=== PATIENT | male | born 1985 | race Caucasian/White ===

== ENCOUNTER 2021-06-10 16:55 | Emergency (ER) | payer SELFPAY ==
[~2021-06-10] VITALS: Ht 175.3 cm; Wt 80.7 kg
[2021-06-10 16:58] VITALS: BP 132/65
--- NOTE | 2021-06-10 21:30 | NUR ---
PATIENT NOT IN WAITING ROOM
--- NOTE | 2021-06-10 22:09 | NUR ---
PATIENT ELOPED WITHOUT BEING SEEN BY
== END 2021-06-10 22:09 | disposition left against medical advice (07) ==
LOC: ER 21:44
DX: Z53.21 Procedure and treatment not carried out due to patient leaving prior to being seen by health care provider (principal)

== ENCOUNTER 2021-06-11 13:29 | Emergency (ER) | payer SELFPAY ==
[~2021-06-11] VITALS: Ht 175.3 cm; Wt 80.7 kg
--- NOTE | 2021-06-11 13:29 | NUR ---
PT [id number] FROM STRE[place], PD CALLED. SLEEPING IN A SIDEWALK. 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 PT IS AAOX3, NOT IN RESPIRATORY DISTRESS, V/S STABLE, KEPT RESTED AND COMFORTABLE. WILL CONTINUE TO MONITOR.
--- NOTE | 2021-06-11 13:36 | NUR ---
PT SEEN AND EXAMINED BY .
[2021-06-11 13:51] LABS: BASOPHILS # (AUTO) 0.1 K/uL (0.0-0.2); BASOPHILS % (AUTO) 0.7 % (0.0-2.0); EOSINOPHILS % (AUTO) 0.8 % (0.0-6.0); HEMATOCRIT 42 % (39-51); HEMOGLOBIN 13.9 g/dL (13.5-17.5); LYMPHOCYTES # (AUTO) 1.3 K/uL (0.8-4.8); LYMPHOCYTES % (AUTO) 14.5 % (20.0-44.0); MEAN CORPUSCULAR HGB CONC 33 g/dl (31.0-36.0); MEAN CORPUSCULAR VOLUME 88 fL (80-96); MONOCYTES # (AUTO) 0.7 K/uL (0.1-1.30); MONOCYTES % (AUTO) 7.1 % (2.0-12.0); NEUTROPHILS # (AUTO) 7.2 K/uL (1.8-8.9); NEUTROPHILS % (AUTO) 76.9 % (43.0-81.0); PLATELET COUNT (AUTO) 272 K/uL (150-450); RED BLOOD CELL COUNT(AUTO) 4.71 MIL/uL (4.5-6.0); WHITE BLOOD COUNT (AUTO) 9.3 K/uL (4.3-11.0)
[2021-06-11 13:53] LABS: CALCIUM, SERUM 9.1 mg/dL (8.5-10.1); CARBON DIOXIDE 29 mmol/L (21-32); CHLORIDE 100 mmol/L (98-107); CREATININE 0.8 mg/dL (0.6-1.3); GLUCOSE 84 mg/dL (74-106); POTASSIUM 3.4 mmol/L (3.5-5.1); SODIUM SERUM 138 mmol/L (136-145); UREA NITROGEN, BLOOD 12 mg/dL (7-18)
[2021-06-11 13:54] LABS: ACETAMINOPHEN < 2 ug/ml (10-30); ALANINE AMINOTRANSFERASE 24 U/L (12-78); ALBUMIN 4.1 g/dL (3.4-5.0); ALCOHOL, BLOOD < 3 mg/dL (0-0); ALKALINE PHOSPHATASE 83 U/L (46-116); ASPARTATE AMINOTRANSFERASE 27 U/L (15-37); BILIRUBIN,DIRECT 0.2 mg/dL (0.0-0.2); BILIRUBIN,TOTAL 0.9 mg/dL (0.2-1.0); TOTAL PROTEIN, SERUM 7.6 g/dL (6.4-8.2)
--- NOTE | 2021-06-11 15:32 | NUR ---
URINE COLLECTED AND SENT TO LAB
[2021-06-11 16:05] LABS: BILIRUBIN,URINE SMALL (NEGATIVE); COLOR,URINE YELLOW (YELLOW); LEUKOCYTE ESTERASE ,URINE NEGATIVE (NEGATIVE); NITRITE, URINE NEGATIVE (NEGATIVE); PROTEIN,URINE NEGATIVE (NEGATIVE); UGLUCOSE NEGATIVE (NEGATIVE); UROBILINOGEN,URINE 0.2 EU/dL (0.2)
[2021-06-11 17:30] VITALS: BP 131/69
--- NOTE | 2021-06-11 17:56 | NUR ---
Patient eloped from facility. ER MD notified.
== END 2021-06-11 17:59 | disposition left against medical advice (07) ==
LOC: ER 13:30
DX: G93.40 Encephalopathy, unspecified (principal); Z60.2 Problems related to living alone
CPT/HCPCS: 36415; 80048-TC; 80076-TC; 85025-TC; G0480

== ENCOUNTER 2021-06-12 07:23 | Emergency (ER) | payer SELFPAY ==
[~2021-06-12] VITALS: Ht 175.3 cm; Wt 78.0 kg
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
--- NOTE | 2021-06-12 09:03 | NUR ---
DR MONTAÑO AT THE BEDSIDE
--- NOTE | 2021-06-12 09:15 | NUR ---
THE PATIENT IS PROVIDED WITH BREAKFAST. TOLERATES WELL.
--- NOTE | 2021-06-12 10:22 | NUR ---
THE PATIENT SLEEPING. EASILY RESPONSIVE TO VERBAL STIMULI. RESPIRATION REGULAR AND UNLABORED. WILL CONTINUE TO MONITOR THE PATIENT.
--- NOTE | 2021-06-12 11:11 | NUR ---
The patient is alert and oriented x4. Denies SOB. In room air and denies SOB. Respiration regular and unlabored. Patient given written and verbal discharge instructions. Patient verbalizes understanding of instructions. Patient is ambulatory with steady gait. Patient given list of available shelters in surrounding area. The patient is discharged from ED in stable condition.
[2021-06-12 11:13] VITALS: BP 126/77
== END 2021-06-12 11:13 | disposition home or self-care (01) ==
LOC: ER 07:34
DX: R10.9 Unspecified abdominal pain (principal); Z60.2 Problems related to living alone

== ENCOUNTER 2021-06-13 22:31 | Emergency (ER) | payer SELFPAY ==
[~2021-06-13] VITALS: Ht 180.3 cm; Wt 80.7 kg
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
[2021-06-13] MEDS ORDERED: LIDOCAINE 1% INJ 50 ML MDV IJ ONE (23:16)
[2021-06-13] MEDS ORDERED: AMOXICILLIN TRIHYDRATE 500 MG CAPSULE PO ONE (23:30)
[2021-06-13] MEDS ORDERED: TDAP [DIPH/PERTUSSIS/TET] 0.5 ML VIAL IM ONE (23:30)
--- NOTE | 2021-06-14 00:42 | NUR ---
ER MD AT BEDSIDE FOR SUTURES
[2021-06-14] MEDS ORDERED: TDAP [DIPH/PERTUSSIS/TET] 0.5 ML VIAL IM ONE (01:34)
[2021-06-14] MEDS ORDERED: CLINDAMYCIN 900 MG/6 ML VIAL ONE (01:34)
[2021-06-14] MEDS ORDERED: CLINDAMYCIN 900 MG/6 ML VIAL IM ONE (02:00)
--- NOTE | 2021-06-14 04:35 | NUR ---
PT AWAKE AND ALERT BREATHING EVEN AND UNLABORED ALL VSS
[2021-06-14] MEDS ORDERED: AMOX500C2 PO (05:09)
[2021-06-14] MEDS ORDERED: IBUP-1955 PO (05:09)
[2021-06-14] MEDS ORDERED: CHLO473M5 MM (05:12)
--- NOTE | 2021-06-14 06:10 | NUR ---
PT OK TO DISCHARGE PER DR MAIER. Patient discharged to home in stable condition. Written and verbal after care instructions given. Patient verbalizes understanding of instruction.Patient is awake and alert to self, day, and place. PT ambulatory with a steady gait
[2021-06-14 06:11] VITALS: BP 129/78
== END 2021-06-14 06:11 | disposition home or self-care (01) ==
LOC: ER 22:32
DX: S01.511A Laceration without foreign body of lip, initial encounter (principal); S01.81XA Laceration without foreign body of other part of head, initial encounter; F17.200 Nicotine dependence, unspecified, uncomplicated; Z59.00 Homelessness unspecified; Z79.899 Other long term (current) drug therapy; Y00.XXXA Assault by blunt object, initial encounter; Y93.89 Activity, other specified; Y92.89 Other specified places as the place of occurrence of the external cause; Y99.8 Other external cause status
CPT/HCPCS: 40650; 70450; 70486; 72125; 90471; 90715; 96372; 99284; J3490 ×2